=== PATIENT | female | born 1990 | race Caucasian/White ===

== ENCOUNTER 2017-05-08 16:30 | Emergency (ER) | payer BC ==
[2017-05-08 16:43] VITALS: BMI 44.8
[2017-05-08] MEDS ORDERED: Lactated Ringer's 1,000 ML IV ONE (16:46)
[2017-05-08 17:18] LABS: BASO % 0.3 % (0.0-2.0); EOS # 0.1 K/uL (0.0-0.7); EOS % 0.8 % (0.0-4.0); HEMATOCRIT 32.2 % (34.0-47.0); LYMPH # 1.5 K/uL (1.0-4.3); LYMPH % 13.6 % (20.0-40.0); MEAN CELL VOLUME 87.4 fL (81.0-99.0); MEAN CORPUSCULAR HEMOGLOBIN 29.5 pg (27.0-31.0); MEAN CORPUSCULAR HGB CONC 33.8 g/dL (33.0-37.0); MEAN PLATELET VOLUME 8.3 fL (7.2-11.7); MONO % 8.8 % (0.0-10.0); RED CELL DISTRIBUTION WIDTH 12.9 % (11.5-14.5); WHITE BLOOD COUNT 11.1 K/uL (4.8-10.8)
[2017-05-08 17:21] LABS: CHLORIDE 107 mmol/L (98-107)
[2017-05-08 17:22] LABS: POTASSIUM 3.6 mmol/L (3.6-5.2); RBC URINE 1 /hpf (0-3); SODIUM 135 mmol/L (132-148); URINE BACTERIA FEW (<OCC); URINE BILIRUBIN NEGATIVE (NEGATIVE); URINE BLOOD NEGATIVE (NEGATIVE); URINE COLOR Yellow (YELLOW); URINE GLUCOSE (UA) NORMAL (Normal); URINE KETONE NEGATIVE (NEGATIVE); URINE LEUKOCYTE ESTERASE 1+ Leu/uL (Negative); URINE PROTEIN NEGATIVE (NEGATIVE); URINE UROBILINOGEN NORMAL mg/dL (0.2-1.0); WBC URINE 10 /hpf (0-5)
[2017-05-08 17:24] LABS: ALB/GLOB RATIO 0.9 (1.0-2.1); ALKALINE PHOSPHATASE 85 U/L (38-126); AST/SGOT 18 U/L (14-36); BILIRUBIN,TOTAL 0.4 mg/dL (0.2-1.3); BLOOD UREA NITROGEN 7 mg/dL (7-17); CARBON DIOXIDE 20 mmol/L (22-30); GFR AFRICAN-AMERICAN > 60; GLUCOSE,RANDOM 91 mg/dL (65-105); TOTAL PROTEIN 6.9 g/dL (6.3-8.3)
[2017-05-08 17:25] LABS: ALT/SGPT 13 U/L (9-52); CALCIUM 8.6 mg/dl (8.6-10.4)
[2017-05-08 18:54] LABS: URIC ACID 3.9 mg/dL (2.2-7.5)
--- NOTE | 2017-05-08 18:56 | OBHP ---
Datetime: 05/08/2017 16:37 IP Adm Impression: , intrauterine ; No Active Labor IP Adm Impression Other: uti IP Admit Plan: Discharge home Admit Comment, IP Provider: chief complaint-contraction HPI 27 y/o at 30 wga with c/o contractions.States that she was at work when she took her shruti k and felt the contractions.She also felt 'woozy' at the same time.She sat downa nd then felt better. She called her primary md and was davsie dto go to er for evaluation course uncomplictaed as per patient PMH denies PSH right ovarain cystectomy 2011 OBGYN HX ; NVDX1 at 36 weeks Social hx-past hx of smoking in 2012 as per [facility] records Exam see exam section UA no protein; 1+LE, WBC 10, RBC 1, EPITHELIAL CELLS 4, Few bacteria PLT , AST, ALT WNL BUN/CR 7/0.4 A/P 27 y/o at 30 wga with c/o contractions.BP initially noted to be elevated.Normal bp afterw ards.patient asymptomatic.UA suggestive of uti.patient given 1l iv fluids bolus after which she felt better. -patient discharged home with script for macrobid -follow up in office in 2 days for bp check -patient given pih precautions discussed with dr garland Pelvic Type - PN: Adequate Extremities - PN: Normal Abdomen - PN: Normal Back - PN: Normal Lungs - PN: Normal Heart - PN: Normal Neurologic - PN: Normal General - PN: Normal Contraction Comments Provider: [facility] Gestation - Est Wks by US: 30.0 IP Hx Assessment: The History has been Reviewed and is Current EGA AdmitDate IP: 30.0 Vital Signs Provider: Reviewed; Within Normal Limits IP Chief Complaint: Uterine contractions FHR Category Provider Fetus A: Category I Dilatation, Provider: 0 Genitourinary Exam: Normal DTRs - PN: Normal
== END 2017-05-08 19:16 | disposition home or self-care (01) ==
LOC: C.EROB 16:30
DX: O75.89 Other specified complications of labor and delivery (principal); Z3A.30 30 weeks gestation of pregnancy
CPT/HCPCS: 80053; 81001; 83615; 84550; 85025; 99283; J7120

== ENCOUNTER 2017-07-07 10:03 | Inpatient (IN) | payer BC, OTHER ==
[2017-07-07 11:23] LABS: BASO % 0.2 % (0.0-2.0); EOS # 0.1 K/uL (0.0-0.7); EOS % 0.7 % (0.0-4.0); HEMATOCRIT 32.6 % (34.0-47.0); LYMPH # 1.3 K/uL (1.0-4.3); LYMPH % 12.9 % (20.0-40.0); MEAN CORPUSCULAR HEMOGLOBIN 28.7 pg (27.0-31.0); MEAN CORPUSCULAR HGB CONC 33.7 g/dL (33.0-37.0); MEAN PLATELET VOLUME 8.9 fL (7.2-11.7); MONO # 0.9 K/uL (0.0-0.8); MONO % 8.6 % (0.0-10.0); RED CELL DISTRIBUTION WIDTH 13.2 % (11.5-14.5); WHITE BLOOD COUNT 10.4 K/uL (4.8-10.8)
--- NOTE | 2017-07-07 11:23 | OBADHP ---
Datetime: 07/07/2017 11:18 Admit Comment, IP Provider: @ 38.4 wks GA c/o of pain increasign intenstiy and frquency, denies vb, +Fm. tp reports dicharge incresaing since yesterday OB: x 1 GY: deneis PMH deies PSH denies FH:X non contirub JOHANN 4.9cm A/p @ 38.4 wks GA IOL for oligohydramno -admit to ld -npo, ivf admission labo -epidural prn -cytotec Pelvic Type - PN: Adequate Extremities - PN: Normal Abdomen - PN: Normal Back - PN: Normal Breast - PN: Normal Lungs - PN: Normal Heart - PN: Normal Thyroid - PN: Normal Neurologic - PN: Normal HEENT - PN: Normal General - PN: Normal Weight - Estimated: 3400 Presentation-Admit: Vertex FHR - Baseline A Provider: 150 Membranes, Provider: Intact Contraction Comments Provider: irregular Gestation - Est Wks by US: 38.4 IP Hx Assessment: The History has been Reviewed and is Current IP Chief Complaint: Uterine contractions NICHD Variability Prov Fetus A: Moderate 6-25bpm NICHD Accel Fetus A IP Provider: 15X15 FHR Category Provider Fetus A: Category I NICHD Decel Fetus A IP Provider: None Dilatation, Provider: 3 Effacement, Provider: 30 Station, Provider: -3 Genitourinary Exam: Normal DTRs - PN: Normal EGA AdmitDate IP: 38.4 IP Adm Impression: Term, intrauterine IP Admit Plan: Admit to unit Datetime: 05/08/2017 16:37 IP Adm Impression Other: uti Vital Signs Provider: Reviewed; Within Normal Limits
[2017-07-07 11:27] LABS: MEAN CELL VOLUME 84.9 fL (81.0-99.0)
[2017-07-07 11:30] LABS: CHLORIDE 105 mmol/L (98-107); SODIUM 137 mmol/L (132-148)
[2017-07-07 11:31] LABS: POTASSIUM 3.9 mmol/L (3.6-5.2)
[2017-07-07 11:33] LABS: ALB/GLOB RATIO 0.9 (1.0-2.1); ALKALINE PHOSPHATASE 122 U/L (38-126); ALT/SGPT 19 U/L (9-52); AST/SGOT 14 U/L (14-36); BILIRUBIN,TOTAL 0.3 mg/dL (0.2-1.3); BLOOD UREA NITROGEN 5 mg/dL (7-17); CALCIUM 9.4 mg/dl (8.6-10.4); CARBON DIOXIDE 20 mmol/L (22-30); GFR AFRICAN-AMERICAN > 60; GLUCOSE,RANDOM 77 mg/dL (65-105); TOTAL PROTEIN 6.8 g/dL (6.3-8.3)
[2017-07-07 11:36] LABS: RBC URINE 2 /hpf (0-3); URINE BACTERIA MOD (<OCC); URINE BILIRUBIN NEGATIVE (NEGATIVE); URINE BLOOD NEGATIVE (NEGATIVE); URINE COLOR Yellow (YELLOW); URINE GLUCOSE (UA) NORMAL (Normal); URINE KETONE NEGATIVE (NEGATIVE); URINE LEUKOCYTE ESTERASE 3+ Leu/uL (Negative); URINE PROTEIN NEGATIVE (NEGATIVE); URINE UROBILINOGEN NORMAL mg/dL (0.2-1.0); WBC URINE 24 /hpf (0-5)
[2017-07-07] MEDS: Lactated Ringer's 1,000 ML IV SCH (11:42)
--- NOTE | 2017-07-07 14:53 | OBPN ---
Datetime: 07/07/2017 14:48 IP Progress Impression: Normal progression of labor IP Progress Plan: Continue present management Membranes, Provider: Intact FHR - Baseline A Provider: 125 Gestation - Est Wks by US: 38.4 Presentation-Admit: Vertex IP Progress Note Comment: pt seen and examiend reporting pain from ctx, dneis lof, vb, +FM VSS E:MF cat I TOCO q 2-4 min A/P P1 @ 38.4 wks GA iOL oligohydramnios -s/p cytotec -for pitocon as per protocol -cont current managmeent -epidural prn Vital Signs Provider: Reviewed; Within Normal Limits NICHD Accel Fetus A IP Provider: 15X15 FHR Category Provider Fetus A: Category I NICHD Variability Prov Fetus A: Moderate 6-25bpm Dilatation, Provider: 3 Effacement, Provider: 50 Station, Provider: -3 NICHD Decel Fetus A IP Provider: None Datetime: 07/07/2017 11:18 Contraction Comments Provider: irregular Weight - Estimated: 3400
[2017-07-07] MEDS ORDERED: Oxytocin 30 UNIT 30 UNITS/500 ML BAG IV SCH (15:00)
[2017-07-07] MEDS ORDERED: Oxytocin 30 UNIT 30 UNITS/500 ML BAG IV ONE (15:34)
[2017-07-07] MEDS ORDERED: Bupivacaine 0.125%/FentaNYL 200 ML EPI ONE (16:21)
[2017-07-07] MEDS ORDERED: Bupivacaine HCl 0.25% PF (10 ml) Inj ONE (20:08)
--- NOTE | 2017-07-07 20:09 | OBPN ---
Datetime: 07/07/2017 20:02 IP Progress Impression: Normal progression of labor IP Informed Consent Obtain: Vaginal Delivery IP Progress Plan: Continue present management Membranes, Provider: Intact Contraction Comments Provider: q 2 min FHR - Baseline A Provider: 150 Gestation - Est Wks by US: 38.4 IP Progress Note Comment: pt seen and examined c/o of pain on left side, denies lof, vb, +FM VSS E:M Cat I CR: q 1-2 min A/p @ 38.4 wks n active labor -anethesia: topoff -cont current mangamnet -pitocin as per protocol Vital Signs Provider: Reviewed; Within Normal Limits NICHD Variability Prov Fetus A: Moderate 6-25bpm Dilatation, Provider: 4 Effacement, Provider: 50 Station, Provider: -2 NICHD Decel Fetus A IP Provider: None
--- NOTE | 2017-07-07 22:42 | OBPN ---
Datetime: 07/07/2017 22:39 IP Progress Impression: Normal progression of labor IP Informed Consent Obtain: Vaginal Delivery IP Progress Plan: Continue present management Membranes, Provider: Intact FHR - Baseline A Provider: 150 Gestation - Est Wks by US: 38.4 Presentation-Admit: Vertex IP Progress Note Comment: pt seen and examined c/o pressure, russ selof, vb, +FM VSS EMF: Cat I TOCOP q 2-3 min Pitocn 12 mu/min A/p @ 38.4 wks GA in activ elabor -cont piotocn as per protoocl -cont current manamgnet Vital Signs Provider: Reviewed; Within Normal Limits NICHD Accel Fetus A IP Provider: 15X15 NICHD Variability Prov Fetus A: Moderate 6-25bpm Dilatation, Provider: 5 Effacement, Provider: 50 Station, Provider: -2
[2017-07-08] MEDS ORDERED: Bupivacaine HCl 0.25% PF (10 ml) Inj ONE ×2 (02:10→04:18)
--- NOTE | 2017-07-08 03:47 | OBPN ---
Datetime: 07/08/2017 03:40 IP Progress Impression: Normal progression of labor IP Procedures: Artificial ROM IP Progress Plan: Continue present management Membranes, Provider: Ruptured Amniotic Fluid Color, Provider: Meconium, Light Contraction Comments Provider: q 2 min FHR - Baseline A Provider: 150 Gestation - Est Wks by US: 38.5 Presentation-Admit: Vertex IP Progress Note Comment: pt seen and examined and reports left sided discomfort even though getting anesthsia. pt with fever 101 pt deie vb, +FM A/P P1 @ 38.5 wks GA in active labor -s/P AROM light meconium -Fever 101.3 : chorioamniotisi For Ampicllin, gentamicn -oxyge, dleft lateral -cont current managmnet Vital Signs Provider: Reviewed; Within Normal Limits FHR Category Provider Fetus A: Category I NICHD Variability Prov Fetus A: Moderate 6-25bpm Dilatation, Provider: 6 Effacement, Provider: 60 Station, Provider: -2 NICHD Decel Fetus A IP Provider: Early
[2017-07-08] MEDS: Lactated Ringer's 1,000 ML IV SCH ×2 (03:55→21:33)
[2017-07-08] MEDS ORDERED: Gentamicin 80 mg/2mL Inj. ONE (04:26)
[2017-07-08] MEDS ORDERED: Lidocaine 2% Inj (20ml) ONE (05:31)
[2017-07-08] MEDS ORDERED: Oxycodone/Acetaminophen 5/325 mg Tab PO PRN ×2 (06:38)
--- NOTE | 2017-07-08 06:38 | OBDS ---
DELIVERY PERSONNEL Delivery Doctor: Leif Nichols MD Manager Digital: Yomaira Bernal RN Anesthesiologist: dr galvan MATERNAL INFORMATION Delivery Anesthesia: Epidural Maternal Complications: Maternal Fever Provider Comments: pt was fully dilated and pushing. atrumatic, spontaneous delivery of head. no nuc todd cord. atruamtic, spontenous delivery of anterior followed by posterior shoulder followed by deliv er of body. both oral and nasal passages of the baby were bulb suctioned. umbilcal cord was clamped a nd cut. baby handed to mother on abomen with rn assistance. cord blood and cord gases collected and s ent x 2. Spontansous delivery of intact placenta with membranes. Fundus firm. Good hemostasis, seco nd degree perineal laceation and anterior vaginal laceration rpeaired iwth 2-0 and 3-0 chromic. No co mplicatoins. live female apgars 9,9 weight of 8lbs 6 ounces ebl 400ml no complicatoins LABOR SUMMARY EDC: 07/17/2017 00:00 No. Babies in Womb: 1 Attempted: No Labor Anesthesia: Epidural LABOR INFORMATION Reason for Induction: Not Applicable Onset of Labor: 07/07/2017 19:56 Complete Dilatation: 07/08/2017 05:25 Cervical Ripening Agents: Cytotec @ 50 Oxytocin: Augmentation Group B Beta Strep: Negative Antibiotics # of Doses: 1 Antibiotics Time of Last Dose: 0432 Steroids Given: None Reason Steroids Not Administered: Not Applicable MEMBRANES Membranes Rupture Method: Artificial Rupture of Membranes: 07/08/2017 03:26 Length of Rupture (hrs): 2.55 Amniotic Fluid Color: Light Meconium Amniotic Fluid Amount: Moderate Amniotic Fluid Odor: Normal STAGES OF LABOR Stage 1 hrs: 9 Stage 1 min: 29 Stage 2 hrs: 0 Stage 2 min: 34 Stage 3 hrs: 0 Stage 3 min: 11 Total Time in Labor hrs: 10 Total Time in Labor min: 14 VAGINAL DELIVERY Initial Vag Sponge Count: 10 Initial Vag Sharps Count: 0 BABY A INFORMATION Infant Delivery Date/Time: 07/08/2017 05:59 Method of Delivery: Vaginal Born in Route : No : N/A Forceps: N/A Vacuum Extraction: N/A Shoulder Dystocia : No SHOULDER DYSTOCIA BABY A Delivery Date/Time: 07/08/2017 05:59 PRESENTATION/POSITION BABY A Presentation: Cephalic Cephalic Presentation: Vertex Vertex Position: Left Occipital Anterior Breech Presentation: N/A PLACENTA INFORMATION BABY A Placenta Delivery Time : 07/08/2017 06:10 Placenta Method of Delivery: Spontaneous SCORES BABY A Heart Rate 1 min: >100 bpm Resp Effort 1 min: Good Cry Reflex Irritability 1 min: Cough or Sneeze or Pulls Away Muscle Tone 1 min: Active Motion Color 1 min: Body [place], Extremities Blue SCORE 1 MIN: 9 Heart Rate 5 min: >100 bpm Resp Effort 5 min: Good Cry Reflex Irritability 5 min: Cough or Sneeze or Pulls Away Muscle Tone 5 min: Active Motion Color 5 min: Body [place], Extremities Blue SCORE 5 MIN: 9 INFANT INFORMATION BABY A Gestational Age at Delivery: 38.5 Gestational Status: Term Outcome : Liveborn Condition : Stable Sex: Female IDENTIFICATION/MEDS BABY A ID Band Number: [id number] ID Band Location: Left Leg; Left Arm Sensor Applied: Yes Sensor Number: [id number] Sensor Location : Cord Clamp Vitamin K Given : Aquamephyton 1 mg IM; Left Thigh Erythromycin Given: Given Both Eyes WEIGHT/LENGTH BABY A Birthweight (gms): 3805 Infant Weight (lb): 8 Weight (oz): 6 Length Inches: 20.00 Infant Length cms: 50.8 CORD INFORMATION BABY A No. Cord Vessels: 3 Nuchal Cord : N/A Cord Blood Taken: Yes Infant Suction: Mouth ASSESSMENT BABY A Complications: None Infant Complications Other: none Physical Findings at Delivery: Within Normal Limits Respirations: Appears Normal Lens Cutter/ALS Called : No Infant Care By: JEREMY Transferred To: Remains with Mother
[2017-07-08] MEDS ORDERED: Benzocaine/Menthol 20%-0.5% Topical Spray (60 ml) TOP PRN (06:39)
[2017-07-08] MEDS ORDERED: Oxytocin 30 UNIT 30 UNITS/500 ML BAG IV SCH (06:45)
[2017-07-08] MEDS: Multiple Vitamins Tab PO SCH (09:28)
[2017-07-08 11:02] LABS: BASO % 0.1 % (0.0-2.0); HEMATOCRIT 30.6 % (34.0-47.0); LYMPH % 5.6 % (20.0-40.0); MEAN CELL VOLUME 85.2 fL (81.0-99.0); MEAN CORPUSCULAR HEMOGLOBIN 28.7 pg (27.0-31.0); MEAN CORPUSCULAR HGB CONC 33.7 g/dL (33.0-37.0); MEAN PLATELET VOLUME 8.7 fL (7.2-11.7); MONO # 1.2 K/uL (0.0-0.8); MONO % 6.6 % (0.0-10.0); PLATELET COUNT 241 K/uL (130-400); RED CELL DISTRIBUTION WIDTH 13.5 % (11.5-14.5)
[2017-07-08 11:05] LABS: WHITE BLOOD COUNT 18.7 K/uL (4.8-10.8)
[2017-07-08 13:47] LABS: NEUTROPHIL 82 % (50-75); TOTAL CELLS COUNTED 100
[2017-07-08 16:26] VITALS: O2SAT 99
[2017-07-08] MEDS ORDERED: Simethicone 80 mg Chewtab PO ONE (22:10)
[2017-07-08 23:10] LABS: MEAN CORPUSCULAR HEMOGLOBIN 28.5 pg (27.0-31.0); MEAN CORPUSCULAR HGB CONC 33.6 g/dL (33.0-37.0); MEAN PLATELET VOLUME 9.3 fL (7.2-11.7); RED CELL DISTRIBUTION WIDTH 13.5 % (11.5-14.5); WHITE BLOOD COUNT 15.4 K/uL (4.8-10.8)
[2017-07-08 23:18] LABS: CHLORIDE 106 mmol/L (98-107)
[2017-07-08 23:19] LABS: POTASSIUM 3.8 mmol/L (3.6-5.2); SODIUM 137 mmol/L (132-148)
[2017-07-08 23:21] LABS: ALB/GLOB RATIO 0.8 (1.0-2.1); ALKALINE PHOSPHATASE 98 U/L (38-126); AMYLASE 47 U/L (30-110); AST/SGOT 20 U/L (14-36); BILIRUBIN,TOTAL 0.3 mg/dL (0.2-1.3); BLOOD UREA NITROGEN 5 mg/dL (7-17); CARBON DIOXIDE 23 mmol/L (22-30); GFR AFRICAN-AMERICAN > 60; TOTAL PROTEIN 5.6 g/dL (6.3-8.3)
[2017-07-08 23:22] LABS: ALT/SGPT 22 U/L (9-52); CALCIUM 8.7 mg/dl (8.6-10.4); GLUCOSE,RANDOM 125 mg/dL (65-105)
--- NOTE | 2017-07-08 23:27 | OBPPN ---
Datetime: 07/08/2017 23:07 PP Pain Prov comment: Epigastric pain PP Heart Prov: Normal PP Lungs Prov: Normal PP Abdomen/Uterus Prov: Normal PP Comments Phys Exam Prov: Abdomen: obese; soft; non distended; (+) epigastric pain to deep palpati on. N rebound; No guarding. No Perea's sign. Uterus firm, mobile, at umbilicus. PP Plan Prov: Continue present management PP Progress Note Prov: Asked by Dr. Nichols to evaluate patient: S/P 2 episodes of vomiting Patient received in bed in room 451 at approximately 2215 hours, in NAD; visibly uncomfortable. (+ ) nausea and vomiting after eating dinner - ellie parmiagiana. Not too long after, attempted to dri nk shayne kaleb and vomited again. Not burping; Not passed flatus. Denies any allergy to lactose. Vasu hernandez had received zofran and reglan approx 30 to 60 minutes hour prior to this evaluation - denies a ny significant improvement. Denies headaches, blurred vision. "I just want to sleep". P.E.: as above. Assessment: Epigastric pain, with nausea and vomiting - aetiology unclear. Probabye related to fo od ingestion; DDX includes disorder of hepatobiliary tree; pre-eclampsia. D/W patient: trial of myli con to facilitate burping; NPO; toradol for pain; continue zofran and reglan as scheduled; observatio n. Plan: 1) Mylicon 80 mg p.o. x 1 dose now 2) toradol 30 mg IVP x 1 now 3) CBC, Comp with lipase, amylase, now 4) NPO 5) Continue IVFs Addendum: 2300 hours - Patient resting more comfortably in bed on herleft side in a lateral position. States vomited th e mylicon; states very little improvement since this third episode of vomiting (however, was resting, almost sleeping, when I entered the room) Plan: 1) Continue present management 2) Follow up labs Vital Signs Provider PP: Reviewed; Within Normal Limits
[2017-07-09] MEDS: Lactated Ringer's 1,000 ML IV SCH ×2 (05:43→16:31)
[2017-07-09 07:18] LABS: HEMATOCRIT 28.2 % (34.0-47.0); MEAN CELL VOLUME 85.9 fL (81.0-99.0); MEAN CORPUSCULAR HEMOGLOBIN 28.4 pg (27.0-31.0); WHITE BLOOD COUNT 12.5 K/uL (4.8-10.8)
[2017-07-09 07:40] LABS: CHLORIDE 106 mmol/L (98-107)
[2017-07-09 07:41] LABS: SODIUM 136 mmol/L (132-148)
[2017-07-09 07:43] LABS: ALB/GLOB RATIO 0.9 (1.0-2.1); ALKALINE PHOSPHATASE 79 U/L (38-126); AMYLASE 53 U/L (30-110); AST/SGOT 17 U/L (14-36); BILIRUBIN,TOTAL 0.4 mg/dL (0.2-1.3); BLOOD UREA NITROGEN 6 mg/dL (7-17); CARBON DIOXIDE 23 mmol/L (22-30); GFR AFRICAN-AMERICAN > 60; GLUCOSE,RANDOM 79 mg/dL (65-105)
[2017-07-09 07:44] LABS: ALT/SGPT 19 U/L (9-52); CALCIUM 8.3 mg/dl (8.6-10.4)
--- NOTE | 2017-07-09 07:45 | OBPPN ---
Datetime: 07/09/2017 07:42 PP Pain Prov: Within normal limits PP Nausea Prov: Denies PP Flatus Prov: Yes PP BM Prov: No PP Breasts Prov: Normal PP Heart Prov: Normal PP Lungs Prov: Normal PP Abdomen/Uterus Prov: Normal PP Lochia Prov: Normal PP Vulva/Perineum Prov: Normal PP CVA Tenderness Prov: Normal PP Extremities Prov: Normal PP C/S Incision Prov: Not Applicable PP Progress Prov: Normal PP Impression Prov: Normal progression PP Plan Prov: Continue present management PP Progress Note Prov: Pt seen and examined and reports pain is controlled with medication. Pt had 2 epsidose of billious vomitign yesterday, non bloody, after eating pasta. Pt stats feels better this morning. pt stats she initially had epigastric mosqueda during vomiting which subsquencyly improved. pt d enies any fever, chills,CP, SOB. pt is ambuting, tolerating regular diet, passing flatus, +BM. VSS GEN: NAD, AAo x 3 RESP: CTAB?l CVS: RRR, +S1/S2 BREAST Non tender, non engorged ABD: soft, NT/ND, +BS, no epigastri tendenrs, no guarding, no reobud tenderness, no rigidity FUNDUS: Firm, at level of umbilucs VE: Minimal lochia, non ful smelling EXT: negative cat's sign A/P s/p PPD #1 with non specific vomiting -Diet: NPO, advance as toelratge -IVH -Zofran 4mg IV q 4 hour -Pepcid 20mg IV q day -Labs -if continued vomiting will consider imagining -pain manamgnet Vital Signs Provider PP: Reviewed; Within Normal Limits
[2017-07-09] MEDS: Multiple Vitamins Tab PO SCH ×2 (10:49→16:15)
--- NOTE | 2017-07-10 07:24 | OBPPN ---
Datetime: 07/10/2017 07:21 PP Pain Prov: Within normal limits PP Nausea Prov: Denies PP Flatus Prov: Yes PP BM Prov: No PP Breasts Prov: Normal PP Heart Prov: Normal PP Lungs Prov: Normal PP Abdomen/Uterus Prov: Normal PP Lochia Prov: Normal PP Vulva/Perineum Prov: Normal PP CVA Tenderness Prov: Normal PP Extremities Prov: Normal PP C/S Incision Prov: Not Applicable PP Progress Prov: Normal PP Impression Prov: Normal progression PP Plan Prov: Continue present management; Discharge PP Progress Note Prov: pt seen and examined and reprots feeling better. pt denies any nause, vomitin g, cp, sob. pt reports pain controlled iwth medication. Pt denies any lightheadness, dizzyness, pt am buaitng. breast feeding VSS PE see aove A/P s/p PPD #2 stable for discharge d/c home rto 6 weeks precautiosn given Vital Signs Provider PP: Reviewed; Within Normal Limits
--- NOTE | 2017-07-10 07:27 | OBDCSUM ---
Datetime: 07/10/2017 07:23 Discharged to, Provider: Home Follow up at, Provider: Dr Nichols Disch Instr Activity: Normal activity Disch Instr Diet: Regular Discharge Instructions, Provider: Routine instructions given Discharge Diagnosis, Provider: Term Delivered Discharge Time: 07/10/2017 13:00 Follow up in weeks, Provider: 6 weeks Disch Referrals: None Contraception discussed, Prov: Yes Disch Activity Restrictions: No sexual activity; Nothing in vagina - [place], tampons, douche Discharge Comment, Provider: precautions given Contraception after Delivery: Not Planning to Use
[2017-07-10] MEDS: Multiple Vitamins Tab PO SCH (13:41)
[2017-07-10 21:00] VITALS: BP 103/70; PULSE 70; RESP 18; TEMP 97.3
== END 2017-07-10 15:15 | disposition home or self-care (01) | DRG 775 ==
LOC: C.EROB 10:03 → C.4D 10:31 → C.4M 07-08 08:41
PROVIDERS: ADMIT Obstetrics & Gynecology; ATTEND Obstetrics & Gynecology
PROC: 10E0XZZ Delivery of Products of Conception, External Approach (ICD-10-PCS; principal; 2017-07-08)
PROC: 0KQM0ZZ Repair Perineum Muscle, Open Approach (ICD-10-PCS; 2017-07-08)
PROC: 10907ZC Drainage of Amniotic Fluid, Therapeutic from Products of Conception, Via Natural or Artificial Opening (ICD-10-PCS; 2017-07-08)
DX: O41.03X0 Oligohydramnios, third trimester, not applicable or unspecified (principal); O41.1230 Chorioamnionitis, third trimester, not applicable or unspecified; O77.0 Labor and delivery complicated by meconium in amniotic fluid; O70.1 Second degree perineal laceration during delivery; Z37.0 Single live birth; Z3A.38 38 weeks gestation of pregnancy